=== PATIENT | male | born 1955 | race Caucasian/White ===

== ENCOUNTER 2024-03-14 09:36 | Outpatient (CLI) | payer MEDICARE, OTHER, SELFPAY ==
--- NOTE | 2024-04-03 15:30 | WPDSLEEPSTUD ---
Sleep Study Date of Study: 03/14/24 Ordering Provider: Alex Gonzales, Interpreting Physician: Georgia Rosales, Sleep Study Type: BiPAP Titration Height: 1.93 m Weight: 149.685 kg Body Mass Index: 40.1 Neck Circumference (inches): 18.75 [place]: 6 Reason for Sleep Study Previously diagnosed severe sleep apnea in 1989. Currently on CPAP 16 cm H2O but has excessive daytime sleepiness. 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 the patient denies awakening from sleep short of breath. He denies awakening at night with heartburn, belching or cough. He constantly snores and is frequently loud enough that others complain. He occasionally has trouble sleeping when he has a cold. He denies waking up gasping for air throughout the night. He denies having breathing problems at night observed by himself or others. He denies sweating excessively at night. He frequently has heart palpitations or irregular heartbeats during the night. He occasionally falls asleep during the day but never while driving. He denies sleep paralysis and cataplexy. He denies having trouble at school or work due to sleepiness. He rarely experiences vivid dreamlike scenes upon awakening or falling asleep. He denies feeling afraid of going to sleep. He rarely has nightmares. He occasionally remembers his dreams. He frequently has thoughts racing through his mind. He denies feeling sad, depressed or anxious. He frequently has muscular tension. He occasionally notices parts of his body jerk. He frequently kicks during the night. He frequently has crawling and aching feelings in his legs and frequently has leg pain during the night. He denies awakening with morning jaw pain. He constantly is bothered by pain during the day and frequently awakened by pain during the night. He constantly wakes up feeling stiff in the morning. He constantly wakes up with sore or achy muscles. He frequently wakes up with pain in the neck, spine and other joints. He goes to bed between 8-9 p.m. on both weekdays and weekends. He is able to fall asleep relatively quickly. He wakes up 2-3 times throughout the night to urinate and is able to fall asleep relatively quickly. He wakes up at 4:00 a.m. on both weekdays and weekends. He typically gets 6 hours of sleep per night. He will stay in bed for 10-15 minutes after waking up in the morning. He currently lives with his . He denies consuming any caffeinated beverages within 2 hours of bedtime. He denies engaging in physical exercise before bedtime. He will watch television before falling asleep. He avoids taking naps in the afternoon or the evening. He consumes 1.5 pots of coffee per day. He quit smoking cigarettes 32 years ago. He consumes 2 alcoholic beverages per day. He denies recreational drug PMFSH Past Medical History Medical History (Updated 04/03/24 @ 15:34 by Georgia Rosales DO) Atrial fibrillation Essential hypertension Heart failure with reduced ejection fraction (HFrEF, <= 40%) History of tobacco use TRACY (obstructive sleep apnea) Sleep Procedure A full night polysomnogram using the [employer] multi-channel system recorded the standard physiologic parameters including EEG, EOG, submentalis EMG, anterior tibialis EMG, EKG, body position, nasal and oral airflow using PAP device flow signal.? Respiratory parameters of chest and abdominal movements were recorded with Respiratory Inductance Plethysmography belts. Oxygen saturation was recorded by pulse oximetry. Video monitoring was also performed. Sleep stages, periodic limb movements, and EEG arousals were scored in 30 second epochs according to the criteria of the AASM Scoring Manual. The Apnea-Hypopnea Index was calculated using CMS guidelines for definition of hypopnea with 4% O2 desaturations while scoring respiratory events. [facility]
[2024-04-03 15:50] VITALS: BMI 40.1
== END 2024-03-15 06:10 | disposition home or self-care (01) ==
PROVIDERS: Visit Provider Internal Medicine Pulmonary Disease
DX: G47.33 Obstructive sleep apnea (adult) (pediatric) (principal)
CPT/HCPCS: 95811